=== PATIENT | male | born 1985 | race Caucasian/White ===

== ENCOUNTER 2022-10-02 22:09 | Emergency (ER) | payer BC ==
[~2022-10-02] VITALS: Ht 185.4 cm; Wt 72.6 kg
--- NOTE | 2022-10-02 22:55 | NUR ---
EKG DONE AT BEDSIDE
[2022-10-02] MEDS ORDERED: IV NS 0.9% 500 ML BAG IV ONE (23:00)
--- NOTE | 2022-10-02 23:05 | NUR ---
18GA TO RAC ESTABLISHED
[2022-10-02 23:20] LABS: BASOPHILS % (AUTO) 0.8 % (0.0-2.0); EOSINOPHILS % (AUTO) 1.2 % (0.0-6.0); HEMATOCRIT 42 % (39-51); LYMPHOCYTES # (AUTO) 1.5 K/uL (0.8-4.8); MEAN CORPUSCULAR HGB CONC 33 g/dl (31.0-36.0); MEAN CORPUSCULAR VOLUME 89 fL (80-96); MONOCYTES # (AUTO) 0.5 K/uL (0.1-1.30); NEUTROPHILS # (AUTO) 3.6 K/uL (1.8-8.9); PLATELET COUNT (AUTO) 210 K/uL (150-450); RED BLOOD CELL COUNT(AUTO) 4.74 MIL/uL (4.5-6.0); WHITE BLOOD COUNT (AUTO) 5.7 K/uL (4.3-11.0)
--- NOTE | 2022-10-02 23:34 | NUR ---
TO CT, ACCOMPANIED BY TECH
[2022-10-02 23:36] LABS: CALCIUM, SERUM 9.3 mg/dL (8.5-10.1); CARBON DIOXIDE 28 mmol/L (21-32); CHLORIDE 104 mmol/L (98-107); CREATININE 1.1 mg/dL (0.6-1.3); GLUCOSE 136 mg/dL (74-106); POTASSIUM 3.6 mmol/L (3.5-5.1); SODIUM SERUM 140 mmol/L (136-145); UREA NITROGEN, BLOOD 16 mg/dL (7-18)
--- NOTE | 2022-10-02 23:44 | NUR ---
PT RETURNED TO ER BED [address]
[2022-10-03 00:11] LABS: ALANINE AMINOTRANSFERASE 27 U/L (12-78); ALBUMIN 4.3 g/dL (3.4-5.0); ALKALINE PHOSPHATASE 58 U/L (46-116); ASPARTATE AMINOTRANSFERASE 27 U/L (15-37); BILIRUBIN,TOTAL 0.5 mg/dL (0.2-1.0); TOTAL PROTEIN, SERUM 7.2 g/dL (6.4-8.2)
[2022-10-03 01:36] LABS: BILIRUBIN,DIRECT 0.1 mg/dL (0.0-0.2)
--- NOTE | 2022-10-03 04:19 | NUR ---
Patient discharged to home in stable condition. Written and verbal after care instructions given. Patient verbalizes understanding of instruction. IV removed. Catheter intact and site benign. Pressure and 4x4 applied to site. No bleeding noted.
[2022-10-03 04:20] VITALS: BP 110/74
== END 2022-10-03 04:21 | disposition home or self-care (01) ==
LOC: ER 22:24
DX: R07.89 Other chest pain (principal); R55 Syncope and collapse
CPT/HCPCS: 99285; 70450; 71045; 93005; 85025; 80048; 80076; 36415; 84484; 85730; J7040